=== PATIENT | female | born 1995 | race Caucasian/White ===

== ENCOUNTER 2018-10-28 19:14 | Day surgery (SDC) | payer BC ==
[2018-10-28 19:49] VITALS: BMI 35.7
--- NOTE | 2018-10-28 21:44 | PRG ---
DATE OF SERVICE: 10/28/2018 PRIMARY OB: Out of town. CHIEF COMPLAINT: Elevated blood pressures. HISTORY OF PRESENT ILLNESS: The patient is a 23-year-old G2, P0 female with an intrauterine at approximately 27 weeks, who presented to Labor and Delivery upon the recommendation of her COTTON SAMPLER. When seeing her nuisance wildlife control operator, her nuisance wildlife control operator noted her to have pressures in the 140s. The patient reports a history of type 1 diabetes and was here for routine evaluation. Her most recent A1c is in the low 5s. The patient denies headaches, fever, fall, chest pain, shortness of breath, nausea, vomiting, diarrhea, or constipation, any new rashes, hip problems, knee problems, muscle weakness other than in her left lower extremity, due to a traumatic injury at age 10. The patient denies any vaginal bleeding, leakage of fluid, urinary urgency, or frequency. PAST MEDICAL HISTORY: Includes bipolar depressive disorder, anxiety, PTSD, and type 1 diabetes. PAST SURGICAL HISTORY: She has had her appendix removed. She has had numerous surgeries on her left lower extremity due to a crushing injury at age 10. ALLERGIES: TRAMADOL, JESSICA, THE FLU VACCINE, AND PNEUMONIA VACCINE. SOCIAL HISTORY: Denies drug, alcohol, or tobacco use. OB LABS: Unavailable at time of dictation. MEDICATIONS: The patient is on; 1. Fast-acting insulin. 2. Wellbutrin. 3. Zoloft. 4. Seroquel. 5. Gabapentin. 6. Tylenol No. 3 p.r.n. REVIEW OF SYSTEMS: Per HPI. PHYSICAL EXAMINATION: VITAL SIGNS: Blood pressures have been in the one teens to 120s over 60s and up to 72, heart rate has been in the 90s to low 100s, saturating 98% to 100% on room air, respiratory rate 18, temperature 98.0. GENERAL: She appears to be in no acute distress. She is alert, oriented, and cooperative. Pleasant and interactive. HEENT: Head is normocephalic and atraumatic. LUNGS: Clear to auscultation bilaterally. HEART: Has regular rate and rhythm. ABDOMEN: Gravid and soft, nontender. EXTREMITIES: Nontender. Her left lower extremity is severely scarred and disfigured due to the crushing injury and has swelling in various skin grafts, but appears to have good color. Otherwise healthy. Her right lower extremity does not have any significant swelling apart from some mild pedal edema. GENITOURINARY: Has been deferred. heart tracing shows the fetus with a baseline in the 140s with moderate long-term variability, positive 15 x 15 accelerations appropriate for 27-week gestation. Tocometer did not show any contractions. ASSESSMENT AND PLAN: The patient is a 23-year-old female who has been assessed here for the last hour for blood pressure monitoring. The patient has had repetitive normal range blood pressures and no concerns for any symptoms related to blood pressure disorder in . The patient has been given reassurance. Fetus has a category 1 tracing. The patient is being discharged to home with instructions to follow up with her primary OB as scheduled. Job ID: [id number]
== END 2018-10-28 21:35 | disposition home or self-care (01) ==
LOC: L&D/OP 19:14
PROVIDERS: ATTEND Obstetrics & Gynecology
DX: O99.89 Other specified diseases and conditions complicating pregnancy, childbirth and the puerperium (principal); R03.0 Elevated blood-pressure reading, without diagnosis of hypertension; O24.012 Pre-existing type 1 diabetes mellitus, in pregnancy, second trimester; E10.9 Type 1 diabetes mellitus without complications; O99.342 Other mental disorders complicating pregnancy, second trimester; F43.10 Post-traumatic stress disorder, unspecified; F32.9 Major depressive disorder, single episode, unspecified; F41.9 Anxiety disorder, unspecified; Z3A.27 27 weeks gestation of pregnancy; Z79.4 Long term (current) use of insulin; Z79.899 Other long term (current) drug therapy; Z88.6 Allergy status to analgesic agent; Z88.7 Allergy status to serum and vaccine; Z91.018 Allergy to other foods
CPT/HCPCS: 99282

== ENCOUNTER 2019-06-03 03:16 | Inpatient (IN) | payer BC ==
[2019-06-03 04:11] LABS: #Basophils 0.1 thou/uL (0.0-0.2); #Eosinphils 0.1 thou/uL (0.0-0.7); #Lymphocytes 2.2 thou/uL (1.20-3.40); #Monocytes 0.3 thou/uL (0.11-0.59); #Neutrophils 5.1 thou/uL (1.40-6.50); %Basophils 0.7 % (0.0-1.0); %Eosinophils 1.1 % (0.0-10.0); %Lymphocytes 28.2 % (21.0-51.0); %Monocytes 3.8 % (0.0-10.0); %Neutrophils 66.3 % (42.0-75.0); Hemoglobin 12.9 g/dL (12.0-16.0); Mean Corpuscular HGB CONC 32.4 g/dL (32.0-36.0); Mean Corpuscular Hemoglobin 27.5 pg (27.0-31.0); Mean Corpuscular Volume 84.7 fL (78.0-98.0); Mean Platelet Volume 9.4 fL (7.4-10.4); Platelet Count 269 thou/uL (130-400); RBC Distribution Width 11.9 % (11.5-14.5); Red Blood Cell (RBC) Count 4.68 mill/uL (4.20-5.40); White Blood Cell (WBC) Count 7.7 thou/uL (4.8-10.8)
[2019-06-03 04:20] LABS: BHCG - Serum Negative (NEGATIVE); Pregs Control Background? CLEAR/WHITE (CLR/WHITE); Pregs Control Bar Appear? YES (CONTROL BAR)
[2019-06-03 04:32] LABS: Acetaminophen Less than 6.0 mcg/mL (10.0-30.0); Alcohol Less than 10 mg/dL (Less than 10); Salicylate Less than 8.0 mg/dL (15.0-30.0)
[2019-06-03 04:37] LABS: ALT (SGPT) 10 U/L (8-55); AST (SGOT) 12 U/L (5-34); Albumin 3.9 g/dL (3.5-5.0); Alkaline Phosphatase 109 U/L (40-110); Anion Gap 15 mmol/L (10-20); BUN (Urea Nitrogen) 11 mg/dL (7.0-18.7); Bilirubin, Total 0.2 mg/dL (0.2-1.2); Calc. Creatinine Clearance 0 mL/min (70-130); Carbon Dioxide 20 mmol/L (22-29); Chloride 108 mmol/L (98-107); Estimated GFR-MDRD Greater than 90; Globulin 3.1 g/dL (2.4-3.5); Glucose 128 mg/dL (70-105); Potassium 3.4 mmol/L (3.5-5.1); Sodium 140 mmol/L (136-145)
[2019-06-03 04:45] LABS: Thyroid Stimulating Hormone 1.1637 uIU/mL (0.35-4.94)
[2019-06-03 06:09] VITALS: BMI 39.1
[2019-06-03] MEDS ORDERED: Ondansetron ODT 4 MG TAB PO PRN (10:34)
[2019-06-03] MEDS ORDERED: Dextrose 5% in Water 1,000 ML IV PRN ×2 (10:34→10:55)
[2019-06-03] MEDS ORDERED: HumaLOG 300 UNITS/3 ML VIAL SC PRN ×3 (10:34→10:55)
[2019-06-03] MEDS ORDERED: HYDROcodone/Acetaminophen 5/325 mg Tablet PO PRN (10:34)
[2019-06-03] MEDS ORDERED: hydrALAZINE 20 MG/ML VIAL SLOW IVP PRN (10:34)
[2019-06-03] MEDS ORDERED: Ondansetron PF 4 MG/2 ML Vial IVP PRN (10:34)
[2019-06-03] MEDS ORDERED: Acetaminophen 500 MG TAB PO PRN (10:34)
[2019-06-03] MEDS ORDERED: Dextrose 50% Abboject 50 ML SYRINGE SLOW IVP PRN ×2 (10:34→10:55)
[2019-06-03] MEDS ORDERED: Morphine 4 MG/ML VIAL SLOW IVP SCH (10:45)
[2019-06-03] MEDS: Sodium Chloride 0.9% 1,000 ML IV SCH (11:15)
--- NOTE | 2019-06-03 12:04 | HP ---
PRIMARY CARE PROVIDER: Paresh Styles. CHIEF COMPLAINT: Altered mental status. HISTORY OF PRESENT ILLNESS: This is a 24-year-old female, who initially presented to [facility] Emergency Department with altered mentation and unresponsiveness after the patient was apparently discovered at her grandmother's home with a glucose in the 40s. The patient with a known history of diabetes mellitus type 1 on insulin pump as well as chronic pain syndrome, on chronic narcotic therapy. The patient is status post left ankle repair after undergoing approximately 27 surgeries to her left lower extremity since the age of 10 after sustaining a traumatic fracture to the left lower extremity when a tree fell on her leg. The patient most recently underwent the surgical procedure in March 2019 with application of a halo device. The patient states she has had limited mobility due to the device and uses a wheelchair for mobilization. The patient states she recently moved from the [facility] to live with her grandmother as she was unable to care for herself or her 5-month-old child. The patient states she overtook her morphine and Soma, which she was taking for her left ankle and left lower extremity. The patient apparently had denied any intent for self-harm, however, later admitted in the emergency room that she had suicidal thoughts. The patient states she has no recollection of the events, but states her grandmother said that she thought she was having a seizure at home. The patient does report a history of previous inpatient psychiatric admissions due to PTSD as well as suicidal thoughts. In the emergency room, the patient underwent general evaluation, receiving intravenous normal saline and general supportive management after being noted somnolent. Poison Control was notified with recommendations for telemetry monitoring. The patient currently states she is mentally improving, but has pain in her left lower leg. PAST MEDICAL HISTORY: 1. Diabetes mellitus type 1, treated with insulin pump. 2. Chronic left lower extremity pain, status post long-standing trauma to the left leg with multiple surgeries. 3. Generalized anxiety disorder. 4. Bipolar disorder. 5. Posttraumatic stress disorder. 6. Polysubstance use including marijuana. PAST SURGICAL HISTORY: 1. Status post 27 surgeries to the left lower extremity recently in March 2019 with her current halo device. 2. Status post appendectomy. CURRENT MEDICATIONS: 1. Soma 350 mg p.o. t.i.d. 2. Morphine sulfate extended release 15 mg p.o. b.i.d. 3. Pregabalin 75 mg p.o. b.i.d. 4. Morphine extended release 30 mg p.o. b.i.d. 5. Flexeril 10 mg p.o. b.i.d. ALLERGIES: INFLUENZA A AND TRAMADOL. FAMILY HISTORY: No inheritable disease per the patient's report. SOCIAL HISTORY: Recently moved from the [facility] to live with her grandmother in [place], [place]. History of marijuana abuse. Smokes up to half a pack of cigarettes daily. No alcohol. Nonambulatory currently with wheelchair for mobilization. REVIEW OF SYSTEMS: CONSTITUTIONAL: Negative for weight loss or gain, ability to conduct usual activities. SKIN: Negative for rash, itching. EYES: Negative for double vision, pain. ENT/MOUTH: Negative for nose bleeding, neck stiffness, pain, tenderness. CARDIOVASCULAR: Negative for palpitations, dyspnea on exertion, orthopnea. RESPIRATORY: Negative for shortness of breath, wheezing, cough, hemoptysis, fever or night sweats. GASTROINTESTINAL: Negative for poor appetite, abdominal pain, heartburn, nausea, vomiting, constipation, or diarrhea. GENITOURINARY: Negative for urgency, frequency, dysuria, nocturia. MUSCULOSKELETAL: Negative for pain, swelling. NEUROLOGIC/PSYCHIATRIC: Negative for anxiety, depression. ALLERGY/IMMUNOLOGIC: Negative for skin rash, bleeding tendency. Otherwise negative except as stated per HPI. PHYSICAL EXAMINATION: VITAL SIGNS: Currently, blood pressure 115/56, pulse 88, respiratory rate 18, temperature 98.2 degrees Fahrenheit, O2 saturations 100% on room air. GENERAL APPEARANCE: This is a 24-year-old female, alert and oriented x3, pleasant, responsive, in no acute distress. HEENT: Pupils are equal, round, reactive to light and accommodation. Extraocular muscles are intact. No scleral icterus. No conjunctival injection. Nares patent. OP is clear. Oral mucosa dry. NECK: Supple. No cervical adenopathy. No thyromegaly. No carotid bruits. No JVD appreciated. Cervical spine with full active and passive range of motion. No meningeal signs noted. CHEST: Lungs are clear to auscultation bilaterally. CARDIOVASCULAR: S1 and S2 without noted murmur, rub, or gallop. ABDOMEN: Rounded, soft, nontender, nondistended. Bowel sounds are positive in all 4 quadrants. There is no hepatosplenomegaly. No abdominal bruits. No rebound or guarding appreciated. EXTREMITIES: Left lower extremity with postsurgical changes and halo device in place. Postsurgical changes noted in the mid section of the blakely with multiple areas of scarring. No erythema noted. Pulses are palpable at the dorsalis pedis and posterior tibial arteries. NEUROLOGIC: Cranial nerves 2 through 12 are grossly intact. No focal or lateralizing signs appreciated. PERTINENT LABORATORY AND X-RAY FINDINGS: Sodium 140, potassium 3.4, chloride 108, CO2 of 20, BUN 11, creatinine 0.71, estimated GFR greater than 90, glucose 128, calcium 9.0. LFTs within normal limits. TSH 1.16. Serum beta hCG negative. CBC within normal limits. Salicylate, acetaminophen, and plasma alcohol level negative, 06/03/2019. EKG dated on 06/03/2019 by my interpretation shows sinus tachycardia with heart rates in the 140s. Normal R-wave progression noted in the precordial leads. Normal axis. ASSESSMENT AND PLAN: 1. Intentional overdose. The patient will be admitted to the telemetry unit. The patient overdosed on Soma and opiates. Currently stable. We will continue general supportive management. Intravenous normal saline at 75 mL/h. No indication for Narcan therapy currently. 2. Toxic metabolic encephalopathy secondary to #1. Improved and resolving. Continue general supportive management as outlined previously. 3. Polysubstance abuse, appears acute/subacute as stated previously. Continue supportive management. [facility] consult for disposition planning and consideration for inpatient psychiatric care. 4. Chronic pain syndrome. Continue morphine sulfate 4 mg IV push q.4 hours p.r.n. Confirm home regimen of narcotics. The patient may need additional evaluation by Pain Service. 5. Diabetes mellitus type 1. Continue insulin sliding scale with moderate coverage. Serial Accu-Cheks before meals and at bedtime. Confirm home insulin pump regimen. 6. Prophylaxis. SCDs while in bed. Pepcid 20 mg p.o. b.i.d. General fall risk precautions. Sitter for one-on-one observation. 7. Code status: Full. Surrogate medical decision maker is the patient's grandmother. Job ID: [id number]
[2019-06-03] MEDS: HYDROcodone/Acetaminophen 5/325 mg Tablet PO PRN ×2 (13:32→21:43)
[2019-06-03] MEDS: HumaLOG 300 UNITS/3 ML VIAL SC PRN ×2 (13:33→17:16)
[2019-06-03] MEDS: Morphine 4 MG/ML VIAL SLOW IVP PRN (17:15)
[2019-06-03] MEDS: Famotidine 20 MG TAB PO SCH (21:43)
[2019-06-04] MEDS: Sodium Chloride 0.9% 1,000 ML IV SCH (01:46)
[2019-06-04 05:02] LABS: Band 1 % (5-11); Eosinophils 1 % (0-10); Hemoglobin 11.5 g/dL (12.0-16.0); Lymphocytes 51 % (21-51); MDiff Complete? YES; Mean Corpuscular HGB CONC 32.2 g/dL (32.0-36.0); Mean Corpuscular Hemoglobin 27.3 pg (27.0-31.0); Mean Corpuscular Volume 84.6 fL (78.0-98.0); Mean Platelet Volume 9.5 fL (7.4-10.4); Monocytes 7 % (0-10); Neutrophil 40 % (42-75); Platelet Count 264 thou/uL (130-400); Platelet Morphology Comment Appears Adequate; RBC Distribution Width 12.1 % (11.5-14.5); RBC Morphology Normal; Red Blood Cell (RBC) Count 4.22 mill/uL (4.20-5.40); White Blood Cell (WBC) Count 5.8 thou/uL (4.8-10.8)
[2019-06-04 05:07] LABS: ALT (SGPT) 8 U/L (8-55); AST (SGOT) 10 U/L (5-34); Albumin 3.4 g/dL (3.5-5.0); Alkaline Phosphatase 92 U/L (40-110); Anion Gap 7 mmol/L (10-20); BUN (Urea Nitrogen) 7 mg/dL (7.0-18.7); Bilirubin, Total 0.3 mg/dL (0.2-1.2); Calc. Creatinine Clearance 227 mL/min (70-130); Calcium 8.4 mg/dL (7.8-10.44); Carbon Dioxide 23 mmol/L (22-29); Chloride 111 mmol/L (98-107); Estimated GFR-MDRD Greater than 90; Globulin 2.6 g/dL (2.4-3.5); Glucose 105 mg/dL (70-105); Potassium 3.2 mmol/L (3.5-5.1); Sodium 138 mmol/L (136-145)
[2019-06-04] MEDS: Morphine 4 MG/ML VIAL SLOW IVP PRN (06:42)
[2019-06-04] MEDS ORDERED: Potassium Chloride 20 MEQ TAB PO SCH (08:45)
[2019-06-04] MEDS: HYDROcodone/Acetaminophen 5/325 mg Tablet PO PRN (09:20)
[2019-06-04] MEDS: Famotidine 20 MG TAB PO SCH (09:20)
--- NOTE | 2019-06-04 09:41 | PDOC.HOSPP ---
- Subjective Encounter Date: 06/04/19 Encounter Time: 09:40 Subjective: Upset. Doesn't want to be here. Says this is a stressful environment. Feels she needs to be home with her child. Says she is not going to a [facility] hospital. - Objective Vital Signs & Weight: Vital Signs (12 hours) Temp Pulse Resp BP Pulse Ox 06/04/19 03:57 97.1 F L 69 16 101/59 L 98 Weight Weight 214 lb I&O: 06/03/19 06/04/19 06/05/19 06:59 06:59 06:59 Intake Total 2265 Balance 2265 Result Diagrams: 06/04/19 04:15 06/04/19 04:15 Additional Labs: Accuchecks 06/03/19 06/03/19 06/03/19 20:52 16:21 12:31 POC Glucose 92 182 H 296 H 06/03/19 10:09 POC Glucose 62 L Hospitalist ROS - Medication Medications: Active Medications Generic Name Dose Route Start Last Admin Trade Name Freq PRN Reason Stop Dose Admin Acetaminophen 1,000 mg 06/03/19 10:34 06/03/19 23:10 Tylenol PO 1,000 mg Q6H PRN Administration Mild Pain (1-3) Hydrocodone Bitart/Acetaminophen 2 tab 06/03/19 10:34 06/04/19 09:20 [place] 5/325 PO 2 tab Q4H PRN Administration Severe Pain (7-10) Famotidine 20 mg 06/03/19 21:00 06/04/19 09:20 Pepcid PO 20 mg BID THADDEUS Administration Sodium Chloride 1,000 mls @ 75 mls/hr 06/03/19 10:34 06/04/19 01:46 Normal Saline 0.9% IV Not Given .[id number] THADDEUS Insulin Human Lispro 0 units 06/03/19 10:55 06/03/19 17:16 Humalog SC 2 unit .MODERATE SLIDING SC PRN Administration Moderate Correctional Scale Morphine Sulfate 4 mg 06/03/19 10:37 06/04/19 06:42 Morphine SLOW IVP 4 mg Q4H PRN Administration Moderate to Severe Pain (6-10) - Exam General Appearance: NAD Heart: RRR, no murmur, no gallops, no rubs, normal peripheral pulses Respiratory: CTAB, no wheezes, no rales, no ronchi, normal chest expansion, no tachypnea, normal percussion Gastrointestinal: soft, non-tender Musculoskeletal - other findings: Left ankle with halo and external fixator. Psychiatric - other findings: Upset, tearful at times. Hosp A/P (1) Intentional overdose of drug in tablet form Code(s): T50.902A - POISONING BY UNSP DRUG/MEDS/BIOL SUBST, SELF-HARM, INIT Status: Acute (2) Chronic pain syndrome Code(s): G89.4 - CHRONIC PAIN SYNDROME Status: Acute (3) Toxic metabolic encephalopathy Code(s): G92 - TOXIC ENCEPHALOPATHY Status: Acute (4) Diabetes mellitus Code(s): E11.9 - TYPE 2 DIABETES MELLITUS WITHOUT COMPLICATIONS Status: Acute - Plan Medically stable. Will DC IV. Can transfer to medical. Will have [facility] re-eval today at her insistence. [facility] recommended involuntary commitment to an inpatient psych facility. Declined by [facility]. Unclear why. Need to get her back on her home meds, but need to get those clarified. In the interim, she is on po and IV pain meds. Blood sugars are well controlled.
[2019-06-04 13:50] VITALS: BP 124/71; TEMP 98.6
[2019-06-04] MEDS ORDERED: Cyclobenzaprine 10 MG TAB PO SCH (15:00)
[2019-06-04] MEDS ORDERED: Pregabalin 75 MG CAP PO SCH (21:00)
[2019-06-04] MEDS ORDERED: Zolpidem Tartrate 5 MG TAB PO SCH (21:00)
[2019-06-04] MEDS ORDERED: Morphine ER 30 MG TAB PO SCH (21:00)
--- NOTE | 2019-06-06 04:23 | DIS ---
DATE OF ADMISSION: 06/03/2019 DATE OF DISCHARGE: 06/04/2019 DISCHARGE DIAGNOSES: 1. Toxic metabolic encephalopathy. 2. Hypoglycemia. 3. Diabetes mellitus. 4. Chronic pain syndrome. HISTORY OF PRESENT ILLNESS: This patient is a 24-year-old female, who presented via the emergency department. For full details, please see the dictated H and P by Dr. Ramirez. Apparently, the patient had some altered mentation, was discovered by family members, had a glucose in the 40s. The patient initially indicated she overtook her morphine and Soma. She denied initially intent of self-harm. However, subsequently it indicated she had suicidal thoughts to the emergency room provider. The patient had some fluids given, and other than being a bit somnolent, appeared to be at her baseline. The patient had a history of numerous surgeries to her left ankle following a childhood accident and had recently had another and has chronic pain syndrome associated with that. She has a left ankle halo with external fixators in place. HOSPITAL COURSE: The patient was placed in observation. She was hydrated in the following morning, she appeared to be completely at her baseline, but was distraught over her situation in general. She had initially been evaluated by [facility]. Once she was deemed clear and initially the plan was for inpatient psychiatric commitment , however, the patient felt like this was a significant misunderstanding. [facility] was asked to revisit the patient. She indicated that she had not over taken her medications, but had only taken her usual dose, but her hypoglycemia had been affecting her mentation and cognition, and at this point, stated she had no intentions of self-harm nor did she have suicidal thoughts and was eager to be back home with her small child. [facility] felt that the patient was at that point, not a threat to herself and was appropriate for discharge to home. On the day of discharge, temperature is 98.6, pulse 79, respirations 16, O2 saturation 100, BP is 124/71. For full physical, please see the progress note dated same day of discharge. DISPOSITION: The patient is discharged to home. She is to continue with her usual home medication regimen with no changes. ACTIVITY: As tolerated. DIET: She has no dietary restrictions. FOLLOWUP: She should follow up with her primary care provider and she can return to the hospital at anytime should she have the need to do so. Time spent in DC activities was 41 min. Job ID: [id number] MTDD
== END 2019-06-04 15:45 | disposition home or self-care (01) | DRG 917 ==
LOC: ERS 03:16 → 2NO 05:51
PROVIDERS: ADMIT Hospitalist; ATTEND Hospitalist
DX: T40.2X2A Poisoning by other opioids, intentional self-harm, initial encounter (principal); G92 Toxic encephalopathy; F41.1 Generalized anxiety disorder; F31.9 Bipolar disorder, unspecified; F43.10 Post-traumatic stress disorder, unspecified; E10.9 Type 1 diabetes mellitus without complications; F12.10 Cannabis abuse, uncomplicated; F19.10 Other psychoactive substance abuse, uncomplicated; G89.4 Chronic pain syndrome; Z96.41 Presence of insulin pump (external) (internal); Y92.009 Unspecified place in unspecified non-institutional (private) residence as the place of occurrence of the external cause; Z90.49 Acquired absence of other specified parts of digestive tract; Z88.8 Allergy status to other drugs, medicaments and biological substances
CPT/HCPCS: 36415; 36416; 80053; 80307; 84443; 84703; 85007; 85025; 85027; 93005; 96360; J2270

== ENCOUNTER 2023-04-19 07:43 | Emergency (ER) | payer BC, MEDICAID, SELFPAY ==
[2023-04-19] MEDS ORDERED: Ibuprofen 800 MG TAB ONE (07:58)
[2023-04-19] MEDS ORDERED: HYDROcodone/Acetaminophen 5/325 mg Tablet ONE (07:59)
== END 2023-04-19 09:31 | disposition home or self-care (01) ==
LOC: ERS 07:43
DX: S83.92XA Sprain of unspecified site of left knee, initial encounter (principal); E10.9 Type 1 diabetes mellitus without complications; F17.290 Nicotine dependence, other tobacco product, uncomplicated; W18.30XA Fall on same level, unspecified, initial encounter